=== PATIENT | male | born 1965 | race Caucasian/White ===

== ENCOUNTER 2017-03-06 16:11 | Emergency (ER) | payer OTHER ==
[~2017-03-06] VITALS: Ht 175.3 cm; Wt 76.0 kg
[~2017-03-06 16:11] MED LIST: LIBRIUM25 MG PO; THIAMINE HCL100 MG PO
[2017-03-06 18:01] VITALS: BP 136/87
== END 2017-03-06 18:02 | disposition home or self-care (01) ==
LOC: EME 16:11
DX: K04.7 Periapical abscess without sinus (principal); I10 Essential (primary) hypertension; F17.200 Nicotine dependence, unspecified, uncomplicated
CPT/HCPCS: 99281; 99283